=== PATIENT | female | born 2000 | race African-American/Black ===

== ENCOUNTER 2023-09-29 21:40 | Emergency (ER) | payer BC ==
[~2023-09-29] VITALS: Ht 167.6 cm; Wt 71.0 kg
[2023-09-29 21:56] VITALS: BP 118/70; PULSE 99; RESP 14; TEMP 99.8; O2SAT 100
== END 2023-09-30 06:08 | disposition left against medical advice (07) ==
LOC: ER 21:40
DX: J02.9 Acute pharyngitis, unspecified (principal); Z53.21 Procedure and treatment not carried out due to patient leaving prior to being seen by health care provider
CPT/HCPCS: 99281